=== PATIENT | female | born 1960 | race Caucasian/White ===

== ENCOUNTER 2017-07-25 21:06 | Inpatient (IN) | payer OTHER ==
[2017-07-25] MEDS ORDERED: KETOROLAC 30 MG/ML 1 ML VIAL IVP STA (22:05)
[2017-07-25] MEDS ORDERED: ONDANSETRON 4 MG/2 ML VIAL IVP STA (22:05)
[2017-07-25] MEDS ORDERED: PANTOPRAZOLE 40 MG/10 ML VIAL IVP STA (22:05)
[2017-07-25 22:30] LABS: Basophils # (A) 0.1 k/uL (0-0.2); Basophils % (A) 1 %; Eosinophils # (A) 0.3 k/uL (0-0.7); Eosinophils % (A) 4 %; HCT 40.6 % (34.0-46.0); HGB 13.7 gm/dL (11.4-16.0); Lymphocytes # (A) 2.2 k/uL (1.0-4.8); Lymphocytes % (A) 33 %; MCH 29.6 pg (25.0-35.0); MCHC 33.7 g/dL (31.0-37.0); Mean Platelet Volume 7.4; Monocytes # (A) 0.4 k/uL (0-1.0); Monocytes % (A) 6 %; Neutrophils # (A) 3.7 k/uL (1.3-7.7); Neutrophils % (A) 55 %; Platelet Count 217 k/uL (150-450); RBC 4.62 m/uL (3.80-5.40); RDW 12.7 % (11.5-15.5); WBC 6.8 k/uL (3.8-10.6)
[2017-07-25 22:41] LABS: ALT 55 U/L (9-52); AST 40 U/L (14-36); Albumin 4.3 g/dL (3.5-5.0); Alkaline Phosphatase 120 U/L (38-126); Amylase 48 U/L (30-110); Anion Gap 14 mmol/L; Blood Urea Nitrogen 16 mg/dL (7-17); Calcium 9.8 mg/dL (8.4-10.2); Carbon Dioxide 22 mmol/L (22-30); Chloride 105 mmol/L (98-107); Glucose 118 mg/dL (74-99); Lipase 81 U/L (23-300); Potassium 4.2 mmol/L (3.5-5.1); Sodium 141 mmol/L (137-145); Total Bilirubin 0.3 mg/dL (0.2-1.3); Total Protein 7.4 g/dL (6.3-8.2)
[2017-07-25] MEDS: SODIUM CHLORIDE 0.9% 1,000 ML IV STA (22:47)
[2017-07-25 22:51] LABS: Creatine Kinase 137 U/L (30-135)
[2017-07-25 23:03] LABS: Creatine Kinase MB 1.7 ng/mL (0.0-2.4); Troponin I <0.012 ng/mL (0.000-0.034)
--- NOTE | 2017-07-25 23:52 | US ---
EXAMINATION TYPE: US gallbladder DATE OF EXAM: 07/25/2017 COMPARISON: NONE CLINICAL HISTORY: Pain. Had ultrasound at another facility that showed wall thickening. EXAM MEASUREMENTS: Liver Length: 14.0 cm Gallbladder Wall: 0.8 cm CBD: 0.4 cm Right Kidney: 9.9 x 3.8 x 4.2 cm Pancreas: Obscured by bowel gas, visualized portions wnl Liver: wnl Gallbladder: Wall is thickened with some possible pericholecystic fluid Evidence for sonographic Fernandez's sign: Yes CBD: wnl as visualized, distal portion obscured by bowel gas Right Kidney: No hydronephrosis or masses seen IMPRESSION: There is gallbladder wall thickening consistent with cholecystitis. No dilated ducts. No gallstones identified.
[2017-07-26 00:18] LABS: WBC,Urine <1 /hpf (0-5)
[2017-07-26] MEDS ORDERED: AMPICILLIN-SULBACTAM 3 GM in SODIUM CHLORIDE 0.9% 100 ML IVPB STA (00:18)
[2017-07-26 00:19] LABS: Appearance,Urine Clear (Clear); Bilirubin,Urine Negative (Negative); Blood,Urine Negative (Negative); Color,Urine Yellow; Glucose,Urine (UA) Negative (Negative); Ketones,Urine Negative (Negative); Leukocyte Esterase,Urine Negative (Negative); Nitrite,Urine Negative (Negative); PH, Urine 6.5 (5.0-8.0); Protein,Urine Negative (Negative); Specific Gravity,Urine 1.006 (1.001-1.035); Urobilinogen,Urine <2.0 mg/dL (<2.0)
--- NOTE | 2017-07-26 00:20 | ED ---
General Adult HPI - General Chief complaint: Abdominal Pain Stated complaint: Abdominal Pain Time Seen by Provider: 07/25/17 22:05 Source: patient Mode of arrival: ambulatory Limitations: no limitations - Related Data Allergies Allergy/AdvReac Type Severity Reaction Status Date / Time No Known Allergies Allergy Verified 07/25/17 21:28 Review of Systems ROS Statement: Those systems with pertinent positive or pertinent negative responses have been documented in the HPI. ROS Other: All systems not noted in ROS Statement are negative. Past Medical History Past Medical History: No Reported History Additional Past Medical History / Comment(s): RA History of Any Multi-Drug Resistant Organisms: None Reported Past Surgical History: Breast Surgery Past Psychological History: No Psychological Hx Reported Smoking Status: Never smoker Past Alcohol Use History: Occasional Past Drug Use History: None Reported General Exam Limitations: no limitations Course Vital Signs 07/25/17 07/26/17 21:24 00:02 Temperature 98.2 F 98.2 F Pulse Rate 77 80 Respiratory 18 19 Rate Blood Pressure 172/82 133/76 O2 Sat by Pulse 98 97 Oximetry Medical Decision Making - Lab Data Result diagrams: 07/25/17 22:18 07/25/17 22:18 Lab Results 07/25/17 07/25/17 07/25/17 Range/Units 22:18 22:18 22:18 WBC 6.8 (3.8-10.6) k/uL RBC 4.62 (3.80-5.40) m/uL Hgb 13.7 (11.4-16.0) gm/dL Hct 40.6 (34.0-46.0) % MCV 88.0 (80.0-100.0) fL MCH 29.6 (25.0-35.0) pg MCHC 33.7 (31.0-37.0) g/dL RDW 12.7 (11.5-15.5) % Plt Count 217 (150-450) k/uL Neutrophils % 55 % Lymphocytes % 33 % Monocytes % 6 % Eosinophils % 4 % Basophils % 1 % Neutrophils # 3.7 (1.3-7.7) k/uL Lymphocytes # 2.2 (1.0-4.8) k/uL Monocytes # 0.4 (0-1.0) k/uL Eosinophils # 0.3 (0-0.7) k/uL Basophils # 0.1 (0-0.2) k/uL Sodium 141 (137-145) mmol/L Potassium 4.2 (3.5-5.1) mmol/L Chloride 105 (98-107) mmol/L Carbon Dioxide 22 (22-30) mmol/L Anion Gap 14 mmol/L BUN 16 (7-17) mg/dL Creatinine 0.70 (0.52-1.04) mg/dL Est GFR (CKD-EPI)AfAm >90 (>60 ml/min/1.73 sqM) Est GFR (CKD-EPI)NonAf >90 (>60 ml/min/1.73 sqM) Glucose 118 H (74-99) mg/dL Plasma Lactic Acid James (0.7-2.0) mmol/L Calcium 9.8 (8.4-10.2) mg/dL Total Bilirubin 0.3 (0.2-1.3) mg/dL AST 40 H (14-36) U/L ALT 55 H (9-52) U/L Alkaline Phosphatase 120 (38-126) U/L Total Creatine Kinase 137 H (30-135) U/L CK-MB (CK-2) 1.7 (0.0-2.4) ng/mL CK-MB (CK-2) Rel Index 1.2 Troponin I <0.012 (0.000-0.034) ng/mL Total Protein 7.4 (6.3-8.2) g/dL Albumin 4.3 (3.5-5.0) g/dL Amylase 48 (30-110) U/L Lipase 81 (23-300) U/L Urine WBC (0-5) /hpf 07/25/17 07/25/17 Range/Units 22:18 23:56 WBC (3.8-10.6) k/uL RBC (3.80-5.40) m/uL Hgb (11.4-16.0) gm/dL Hct (34.0-46.0) % MCV (80.0-100.0) fL MCH (25.0-35.0) pg MCHC (31.0-37.0) g/dL RDW (11.5-15.5) % Plt Count (150-450) k/uL Neutrophils % % Lymphocytes % % Monocytes % % Eosinophils % % Basophils % % Neutrophils # (1.3-7.7) k/uL Lymphocytes # (1.0-4.8) k/uL Monocytes # (0-1.0) k/uL Eosinophils # (0-0.7) k/uL Basophils # (0-0.2) k/uL Sodium (137-145) mmol/L Potassium (3.5-5.1) mmol/L Chloride (98-107) mmol/L Carbon Dioxide (22-30) mmol/L Anion Gap mmol/L BUN (7-17) mg/dL Creatinine (0.52-1.04) mg/dL Est GFR (CKD-EPI)AfAm (>60 ml/min/1.73 sqM) Est GFR (CKD-EPI)NonAf (>60 ml/min/1.73 sqM) Glucose (74-99) mg/dL Plasma Lactic Acid James 1.4 (0.7-2.0) mmol/L Calcium (8.4-10.2) mg/dL Total Bilirubin (0.2-1.3) mg/dL AST (14-36) U/L ALT (9-52) U/L Alkaline Phosphatase (38-126) U/L Total Creatine Kinase (30-135) U/L CK-MB (CK-2) (0.0-2.4) ng/mL CK-MB (CK-2) Rel Index Troponin I (0.000-0.034) ng/mL Total Protein (6.3-8.2) g/dL Albumin (3.5-5.0) g/dL Amylase (30-110) U/L Lipase (23-300) U/L Urine WBC <1 (0-5) /hpf Disposition Clinical Impression: Abdominal pain, Acute cholecystitis Disposition: ADMITTED IP TO THIS HOSP Condition: Good Is patient prescribed a controlled substance at d/c from ED?: No Referrals: Deondre Delacruz MD [Primary Care Provider] - 1-2 days
[2017-07-26 01:07] VITALS: BMI 26.5
[2017-07-26] MEDS: SODIUM CHLORIDE 0.9% 1,000 ML IV STA (01:10)
[2017-07-26] MEDS: AMPICILLIN-SULBACTAM 3 GM in SODIUM CHLORIDE 0.9% 100 ML IVPB SCH ×4 (05:34→23:58)
--- NOTE | 2017-07-26 10:08 | P.GSHP ---
<Rosy Sharpe Xochitl - Last Filed: 07/26/17 10:08> History of Present Illness H&P Date: 07/26/17 Chief Complaint: Right upper quadrant abdominal pain 57-year-old female who presented on the day of admission to the emergency room to be evaluated for persistent right upper quadrant abdominal pain symptomatic nausea sensation patient stated that she has been having this pain for the past several weeks. Did go to her primary care provider to be evaluated who ordered an outpatient ultrasound of the gallbladder. Patient stated that she was told by her PCP the gallbladder was thickened and that she needed to see a surgeon. Patient stated that she was going to call to this week to make an appointment to be seen by Dr. Herrera. stated that she could not wait the pain became more symptomatic presented to the emergency room. Did have an ultrasound of the gallbladder done in the emergency room the report was reviewed it showed gallbladder wall thickening consistent with cholecystitis no dilated ducts. No gallstones identified patient denies prior episodes Patient continues to report having right upper quadrant abdominal pain aggravated by eating high fat food Labs reviewed AST 40 ALT 55 alkaline phosphatase 120 total bili 0.3 No significant abdominal surgeries. Past surgical history breast reduction 15 years ago. Past medical history rheumatoid arthritis on enbrel. - Review of Systems Comment: Essentially unremarkable except as mentioned in the present illness Past Medical History Past Medical History: Rheumatoid Arthritis (RA) Additional Past Medical History / Comment(s): RA History of Any Multi-Drug Resistant Organisms: None Reported Past Surgical History: Breast Surgery Additional Past Surgical History / Comment(s): Reduction breast surg. Past Anesthesia/Blood Transfusion Reactions: No Reported Reaction Past Psychological History: No Psychological Hx Reported Smoking Status: Never smoker Past Alcohol Use History: Occasional Past Drug Use History: None Reported - Past Family History Father Family Medical History: Prostate Disorder Additional Family Medical History / Comment(s): CA. Mother Additional Family Medical History / Comment(s): Car accident. Medications and Allergies Home Medications Medication Instructions Recorded Confirmed Type Adalimumab [Humira Pen] 40 mg SQ Q14D 07/26/17 07/26/17 History Calcium Carbonate [Calcium] 600 mg PO DAILY 07/26/17 07/26/17 History Cholecalciferol [Vitamin D3] 1,000 unit PO DAILY 07/26/17 07/26/17 History Cyanocobalamin (Vitamin B-12) 1,000 mcg PO DAILY 07/26/17 07/26/17 History [Vitamin B-12] Etanercept [Enbrel Sureclick] 50 mg SQ DIRECTED 07/26/17 07/26/17 History Fish Oil(Unknown Dose) 1 cap PO DAILY 07/26/17 07/26/17 History Flaxseed Oil [[place]-3 Flaxseed Oil] 1,000 mg PO DAILY 07/26/17 07/26/17 History Glucosamine/Chondr Gomez A Sod [Osteo 2 tab PO DAILY 07/26/17 07/26/17 History Bi-Flex Caplet] Leflunomide [Arava] 20 mg PO DAILY@1700 07/26/17 07/26/17 History Allergies Allergy/AdvReac Type Severity Reaction Status Date / Time No Known Allergies Allergy Verified 07/26/17 08:52 Surgical - Exam Vital Signs Temp Pulse Resp BP Pulse Ox 98.2 F 77 18 172/82 98 07/25/17 21:24 07/25/17 21:24 07/25/17 21:24 07/25/17 21:24 07/25/17 21:24 GENERAL APPEARANCE: 57-year-old female patient is alert, oriented, in no acute distress. VITAL SIGNS: Reviewed HEENT: Head is normocephalic and atraumatic. Pupils are equal and reactive. The nares are patent. Oropharynx is clear without lesions. NECK: Supple without lymphadenopathy. Traches midline. HEART: S1, S2. Regular rate and rhythm. Denying chest pain no murmur LUNGS: No crackles or wheezes are heard. Adequate air movement bilaterally on room air ABDOMEN: Soft, mild tenderness right upper quadrant nondistended with good bowel sounds. No peritoneal signs. No palpable organomegaly or masses. EXTREMITIES: Normal skin color and turgor. No cyanosis, rash, ulceration, clubbing or edema. Radial pedal pulses are 2/4 bilaterally. NEUROLOGICAL: No focal deficits. Strength and sensation are grossly intact. Results - Labs 07/25/17 22:18 07/25/17 22:18 Abnormal Lab Results - Last 24 Hours (Table) 07/25/17 07/25/17 Range/Units 22:18 22:18 Glucose 118 H (74-99) mg/dL AST 40 H (14-36) U/L ALT 55 H (9-52) U/L Total Creatine Kinase 137 H (30-135) U/L Diabetes panel 07/25/17 Range/Units 22:18 Sodium 141 (137-145) mmol/L Potassium 4.2 (3.5-5.1) mmol/L Chloride 105 (98-107) mmol/L Carbon Dioxide 22 (22-30) mmol/L BUN 16 (7-17) mg/dL Creatinine 0.70 (0.52-1.04) mg/dL Glucose 118 H (74-99) mg/dL Calcium 9.8 (8.4-10.2) mg/dL AST 40 H (14-36) U/L ALT 55 H (9-52) U/L Alkaline Phosphatase 120 (38-126) U/L Total Protein 7.4 (6.3-8.2) g/dL Albumin 4.3 (3.5-5.0) g/dL Calcium panel 07/25/17 Range/Units 22:18 Calcium 9.8 (8.4-10.2) mg/dL Albumin 4.3 (3.5-5.0) g/dL Pituitary panel 07/25/17 Range/Units 22:18 Sodium 141 (137-145) mmol/L Potassium 4.2 (3.5-5.1) mmol/L Chloride 105 (98-107) mmol/L Carbon Dioxide 22 (22-30) mmol/L BUN 16 (7-17) mg/dL Creatinine 0.70 (0.52-1.04) mg/dL Glucose 118 H (74-99) mg/dL Calcium 9.8 (8.4-10.2) mg/dL Adrenal panel 07/25/17 Range/Units 22:18 Sodium 141 (137-145) mmol/L Potassium 4.2 (3.5-5.1) mmol/L Chloride 105 (98-107) mmol/L Carbon Dioxide 22 (22-30) mmol/L BUN 16 (7-17) mg/dL Creatinine 0.70 (0.52-1.04) mg/dL Glucose 118 H (74-99) mg/dL Calcium 9.8 (8.4-10.2) mg/dL Total Bilirubin 0.3 (0.2-1.3) mg/dL AST 40 H (14-36) U/L ALT 55 H (9-52) U/L Alkaline Phosphatase 120 (38-126) U/L Total Protein 7.4 (6.3-8.2) g/dL Albumin 4.3 (3.5-5.0) g/dL Assessment and Plan Assessment: Impression Present on admission right upper quadrant abdominal pain suspect due to acute cholecystitis Ultrasound of the gallbladder showed gallbladder wall thickening consistent with cholecystitis no dilated ducts no gallstones identified History of rheumatoid arthritis on enbrel Plan Obtain the ultrasound gallbladder report from outpatient clinic Scheduled for a HIDA scan follow up on results DVT and GI prophylaxis IV fluid for hydration Pain control keep nothing by mouth until HIDA scan results reviewed Further surgical recommendations pending The above impression and plan of care have been discussed and directed by signing physician. Rosy Sharpe nurse practitioner acting as scribe for signing physician. <Qamar Herrera - Last Filed: 07/26/17 21:31> Surgical - Exam Vital Signs Temp Pulse Resp BP Pulse Ox 98.2 F 77 18 172/82 98 07/25/17 21:24 07/25/17 21:24 07/25/17 21:24 07/25/17 21:24 07/25/17 21:24 Results - Labs 07/26/17 13:21 07/26/17 13:21 Abnormal Lab Results - Last 24 Hours (Table) 07/25/17 07/25/17 07/26/17 Range/Units 22:18 22:18 13:21 Chloride 109 H (98-107) mmol/L Glucose 118 H (74-99) mg/dL AST 40 H (14-36) U/L ALT 55 H (9-52) U/L Total Creatine Kinase 137 H (30-135) U/L Total Protein 6.1 L (6.3-8.2) g/dL Microbiology - Last 24 Hours (Table) 07/25/17 23:56 Urine Culture - Preliminary Urine,Clean Catch Diabetes panel 07/25/17 07/26/17 Range/Units 22:18 13:21 Sodium 141 142 (137-145) mmol/L Potassium 4.2 4.0 (3.5-5.1) mmol/L Chloride 105 109 H (98-107) mmol/L Carbon Dioxide 22 26 (22-30) mmol/L BUN 16 11 (7-17) mg/dL Creatinine 0.70 0.80 (0.52-1.04) mg/dL Glucose 118 H 90 (74-99) mg/dL Calcium 9.8 9.1 (8.4-10.2) mg/dL AST 40 H 30 (14-36) U/L ALT 55 H 50 (9-52) U/L Alkaline Phosphatase 120 90 (38-126) U/L Total Protein 7.4 6.1 L (6.3-8.2) g/dL Albumin 4.3 3.6 (3.5-5.0) g/dL Calcium panel 07/25/17 07/26/17 Range/Units 22:18 13:21 Calcium 9.8 9.1 (8.4-10.2) mg/dL Albumin 4.3 3.6 (3.5-5.0) g/dL Pituitary panel 07/25/17 07/26/17 Range/Units 22:18 13:21 Sodium 141 142 (137-145) mmol/L Potassium 4.2 4.0 (3.5-5.1) mmol/L Chloride 105 109 H (98-107) mmol/L Carbon Dioxide 22 26 (22-30) mmol/L BUN 16 11 (7-17) mg/dL Creatinine 0.70 0.80 (0.52-1.04) mg/dL Glucose 118 H 90 (74-99) mg/dL Calcium 9.8 9.1 (8.4-10.2) mg/dL Adrenal panel 07/25/17 07/26/17 Range/Units 22:18 13:21 Sodium 141 142 (137-145) mmol/L Potassium 4.2 4.0 (3.5-5.1) mmol/L Chloride 105 109 H (98-107) mmol/L Carbon Dioxide 22 26 (22-30) mmol/L BUN 16 11 (7-17) mg/dL Creatinine 0.70 0.80 (0.52-1.04) mg/dL Glucose 118 H 90 (74-99) mg/dL Calcium 9.8 9.1 (8.4-10.2) mg/dL Total Bilirubin 0.3 0.7 (0.2-1.3) mg/dL AST 40 H 30 (14-36) U/L ALT 55 H 50 (9-52) U/L Alkaline Phosphatase 120 90 (38-126) U/L Total Protein 7.4 6.1 L (6.3-8.2) g/dL Albumin 4.3 3.6 (3.5-5.0) g/dL Assessment and Plan Assessment: As above. HIDA scan today shows occlusion of the cystic duct with nonvisualization of the gallbladder. Apparently her outpatient ultrasound showed possible polyps which I suspect likely represented gallstones. Patient' s pain has improved since admission. Options discussed with the patient and her family in detail. At this time recommend cholecystectomy laparoscopically, possible open. Risks of bleeding, infection, bile leak, bile duct injury, retained common bile duct stone, trocar injury, conversion to an open procedure , chronic diarrhea, anesthesia related complications were reviewed. The patient understands wished to proceed
[2017-07-26] MEDS: PANTOPRAZOLE 40 MG/10 ML VIAL IVP SCH (12:51)
[2017-07-26] MEDS: SODIUM CHLORIDE 0.9% 1,000 ML IV SCH ×3 (12:51→23:57)
[2017-07-26 13:37] LABS: HCT 37.8 % (34.0-46.0); HGB 12.3 gm/dL (11.4-16.0); MCHC 32.4 g/dL (31.0-37.0); MCV 89.3 fL (80.0-100.0); Mean Platelet Volume 7.2; Platelet Count 204 k/uL (150-450); RBC 4.23 m/uL (3.80-5.40); RDW 12.9 % (11.5-15.5); WBC 4.7 k/uL (3.8-10.6)
[2017-07-26 13:51] LABS: ALT 50 U/L (9-52); AST 30 U/L (14-36); Albumin 3.6 g/dL (3.5-5.0); Alkaline Phosphatase 90 U/L (38-126); Anion Gap 7 mmol/L; Blood Urea Nitrogen 11 mg/dL (7-17); Calcium 9.1 mg/dL (8.4-10.2); Carbon Dioxide 26 mmol/L (22-30); Chloride 109 mmol/L (98-107); Glucose 90 mg/dL (74-99); Sodium 142 mmol/L (137-145); Total Bilirubin 0.7 mg/dL (0.2-1.3); Total Protein 6.1 g/dL (6.3-8.2)
[2017-07-26 13:57] LABS: Eosinophils # (M) 0.24 k/uL (0-0.7); Lymphocytes # (M) 2.68 k/uL (1.0-4.8); Monocytes # (M) 0.33 k/uL (0-1.0); Neutrophils # (M) 1.46 k/uL (1.3-7.7); Neutrophils % (M) 31 %; Nucleated Red Blood Cells 0 /100 WBC (0-0); Total Cells Counted 100
--- NOTE | 2017-07-26 14:37 | NM ---
EXAMINATION TYPE: NM hepatobiliary wo EF DATE OF EXAM: 07/26/2017 COMPARISON: Ultrasound gallbladder 07/25/2017 INDICATION: Right side abdomen pain TECHNIQUE: After the intravenous administration of 5.18 mCi Tc 99m Mebrofenin hepatobiliary scintigra phy is performed. Images were obtained immediately post injection. FINDINGS: There is prompt uptake and excretion of radiotracer by the liver. Extrahepatic ducts are identified at 9 minutes. The gallbladder is not visualized. Small bowel activity is noted within 17 minutes. IMPRESSION: 1. No obstruction of the common bile duct. 2. Nonvisualization of the cystic duct or gallbladder. Correlate for acute cholecystitis.
[2017-07-26] MEDS: ENOXAPARIN 40 MG/0.4 ML SYRINGE SQ SCH (18:06)
--- NOTE | 2017-07-26 18:17 | CONS ---
CONSULTATION DATE OF CONSULTATION: 07/26/2017 REASON FOR CONSULTATION: Medical management requested by Dr. Herrera. CONSULTATION: This is a pleasant 57-year-old patient of Dr. Delacruz out of [facility]. She follows with telephone service representative Dr. Whiteside for advanced rheumatoid arthritis. The patient was on Enbrel and is now being switched over to Humira. Patient has rheumatoid arthritis in several joints. Patient about 2 weeks ago developed sharp abdominal pain. She had an ultrasound that showed evidence of gallbladder disease. She was referred to see Dr. Herrera but had not gotten around to do that. Yesterday morning the patient woke up feeling unwell, more in her stomach. Most of this was nausea, vomiting, abdominal pain. Ultrasound did confirm acute cholecystitis. Patient was admitted for the same. The patient was put on IV Unasyn. Maybe has a low-grade fever. With the pain medicine, pain is somewhat controlled. REVIEW OF SYSTEMS: CONSTITUTIONAL: Tired. HEENT: None. RESPIRATORY: None. CARDIOVASCULAR: None. GASTROINTESTINAL: As above. GENITOURINARY: None. MUSCULOSKELETAL: Arthritic pain in many joints. DERMATOLOGICAL: None. HEMATOLOGICAL: None. LYMPHATICS: None. PSYCHIATRY: None. NEUROLOGICAL: None. PAST MEDICAL HISTORY: Rheumatoid arthritis. PAST SURGICAL HISTORY: Reduction breast surgery. SOCIAL HISTORY: No smoking. Alcohol occasionally. 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 Lives with significant other called Farooq. FAMILY HISTORY: Prostate cancer. HOME MEDICATIONS: 1. Arava 20 mg p.o. daily at 5 p.m. 2. Osteo Bi-Flex 2 caplets p.o. daily. 3. Flaxseed oil 1000 mg p.o. daily. 4. Fish oil 1 capsule p.o. daily. 5. Enbrel 50 mg subcutaneously p.r.n. 6. Vitamin B12 1000 mcg a day. 7. Vitamin D3 1000 units p.o. daily. 8. Calcium 600 mg p.o. daily. 9. Humira 40 mg subcutaneously every 14 days. ALLERGIES: NONE. PHYSICAL EXAMINATION: VITAL SIGNS ON PRESENTATION: Temperature 98.2, pulse 77, respiration 16, blood pressure 132/76, pulse ox 97% on room air. GENERAL APPEARANCE: Average build. Lying in bed, somewhat tired-appearing. EYES: Pupils equal. Conjunctivae normal. HEENT: External appearance of nose and ears normal. Oral cavity normal. NECK: JVD not raised. Mass not palpable. RESPIRATORY: Effort normal. Lungs are clear. CARDIOVASCULAR: First and second sounds normal. No edema. ABDOMEN: Right upper quadrant tenderness with positive Fernandez sign. Liver and spleen not palpable. LYMPHATIC: No lymph node palpable in neck or axillae. PSYCHIATRY: Alert and oriented x3. Mood and affect. NEUROLOGICAL: Pupils equal. Cranial nerves grossly intact. Power and sensation grossly intact. INVESTIGATIONS: White count 6.8, hemoglobin 13.7, potassium 4.2. BUN and creatinine are normal. ASSESSMENT: 1. Acute on chronic cholecystitis, symptomatic. 2. Bilateral rheumatoid arthritis. Patient is due to get Humira soon. 3. Immunosuppressed state from immunosuppressants, including patient being on Arava and Enbrel. PLAN: At this point we will stop patient's immunosuppressants, including Arava and Enbrel. Patient is on IV Unasyn. N.p.o. getting IV fluids. Patient will need surgical correction. Care was discussed with the patient. Questions were answered. MMODL / IJN: [id number] /
[2017-07-26] MEDS ORDERED: SODIUM CHLORIDE 0.9% 1,000 ML IV ONE (21:08)
[2017-07-26] MEDS ORDERED: MIDAZOLAM 2 MG/2 ML VIAL ONE (21:48)
[2017-07-26] MEDS ORDERED: ROCURONIUM BROMIDE 10 MG/ML 10 ML VIAL IV ONE (21:48)
[2017-07-26] MEDS ORDERED: PROPOFOL 10 MG/ML 20 ML VIAL IV ONE (21:48)
[2017-07-26] MEDS ORDERED: DEXAMETHASONE SOD PHOS (MDV) 100 MG/10 ML VIAL ONE (21:48)
[2017-07-26] MEDS ORDERED: fentaNYL (PF) 50 MCG/ML 2 ML AMP ONE (21:48)
[2017-07-26] MEDS ORDERED: SUCCINYLCHOLINE CHLORIDE 100 MG/5 ML SYR IV ONE (21:48)
[2017-07-26] MEDS ORDERED: LIDOCAINE 1% INJ 10MG/ML (20 ML MDV) ONE (21:48)
[2017-07-26] MEDS ORDERED: GLYCOPYRROLATE 0.2 MG/ML 2 ML VIAL ONE (21:48)
[2017-07-26] MEDS ORDERED: NEOSTIGMINE 1 MG/ML 10 ML VIAL ONE (21:48)
[2017-07-26] MEDS ORDERED: HYDROmorphone (PF) 1 MG/ML ONE (21:48)
[2017-07-26] MEDS ORDERED: ONDANSETRON 4 MG/2 ML VIAL ONE (21:48)
[2017-07-26] MEDS ORDERED: HEPARIN SODIUM,PORCINE 5,000 UNIT/ML 1 ML VIAL ONE (21:48)
[2017-07-26] MEDS ORDERED: ceFAZolin IN SWFI 2 GM/20 ML SYRINGE IVP ONE (22:01)
[2017-07-26] MEDS ORDERED: BUPIVACAINE (PF) 0.5% 30 ML VIAL SQ ONE (22:16)
[2017-07-26] MEDS ORDERED: LACTATED RINGERS 1,000 ML IV ONE (22:17)
--- NOTE | 2017-07-26 22:58 | P.OP ---
Date of Procedure: 07/26/17 Procedure(s) Performed: PREOPERATIVE DIAGNOSIS: Acute cholecystitis POSTOPERATIVE DIAGNOSIS: Same PROCEDURE: Laparoscopic cholecystectomy SURGEON: Javier EBL: Minimal see anesthesia record ANESTHESIA: Gen. COMPLICATIONS: None OPERATIVE PROCEDURE: The patient was brought and placed on the operating room table in the supine position. The patient was placed under general anesthesia at that time. The abdomen was prepped and draped in the usual sterile fashion. A small vertical infraumbilical incision was made. The fascia was grasped with the Vicente forceps. The fascia was retracted anteriorly. The Veress needle was advanced into the peritoneal cavity. The saline drop test was normal. Insufflation took place up to 15 mmHg. A 5 mm optical trocar was advanced into the peritoneal cavity. 2 additional 5 mm trochars were placed in the right upper quadrant under direct visualization. A 12 mm trocar was advanced into the epigastric incision site. The gallbladder was acutely inflamed with a significant edema of the gallbladder wall. The gallbladder was retracted superiorly and laterally. The peritoneum overlying the infundibulum was bluntly dissected. The patient's cystic duct was visualized. The junction between the cystic duct common and hepatic duct was identified. The cystic duct was then divided after placement of 3 12 mm clips on the patient's side and one on the specimen side. The cystic artery was identified and clipped as well. A small vessel was seen along the gallbladder fossa and clipped as well. The gallbladder was then removed from the liver bed using electrocautery. The gallbladder was then removed from the epigastric trocar site with an Endo Catch bag. The gallbladder fossa was irrigated with saline. There was no evidence of any bleeding or biliary drainage seen. The trochars were then removed. The fascia at the 12 millimeter site was closed using a figure-of- eight 0 Vicryl stitch. The skin at all 4 sites was closed using a 4-0 Monocryl stitch. The gallbladder was then later opened and a 1.5cm gallstone was identified within the lumen of the gallbladder. At the end of this procedure the sponge and needle counts were correct. DISPOSITION: Stable to the recovery room
[2017-07-26 23:08] VITALS: RESP 16
[2017-07-26] MEDS: HYDROmorphone 1 MG/ML 1 ML SYRINGE IVP ONE ×2 (23:27→23:36)
[2017-07-27] MEDS: MORPHINE SULFATE 2 MG/ML SYRINGE IVP PRN ×2 (02:48→07:23)
[2017-07-27] MEDS: AMPICILLIN-SULBACTAM 3 GM in SODIUM CHLORIDE 0.9% 100 ML IVPB SCH ×3 (05:26→18:11)
[2017-07-27] MEDS: PANTOPRAZOLE 40 MG/10 ML VIAL IVP SCH (07:23)
[2017-07-27 08:00] LABS: Basophils % (A) 0 %; Eosinophils % (A) 0 %; HCT 38.6 % (34.0-46.0); HGB 12.9 gm/dL (11.4-16.0); Lymphocytes # (A) 0.6 k/uL (1.0-4.8); Lymphocytes % (A) 17 %; MCHC 33.5 g/dL (31.0-37.0); MCV 89.6 fL (80.0-100.0); Mean Platelet Volume 7.6; Monocytes # (A) 0.1 k/uL (0-1.0); Monocytes % (A) 3 %; Neutrophils # (A) 3.1 k/uL (1.3-7.7); Neutrophils % (A) 80 %; Platelet Count 193 k/uL (150-450); RBC 4.31 m/uL (3.80-5.40); RDW 12.6 % (11.5-15.5); WBC 3.8 k/uL (3.8-10.6)
[2017-07-27 08:13] LABS: ALT 61 U/L (9-52); AST 52 U/L (14-36); Albumin 3.8 g/dL (3.5-5.0); Alkaline Phosphatase 92 U/L (38-126); Anion Gap 12 mmol/L; Blood Urea Nitrogen 11 mg/dL (7-17); Calcium 9.1 mg/dL (8.4-10.2); Carbon Dioxide 22 mmol/L (22-30); Chloride 106 mmol/L (98-107); Glucose 135 mg/dL (74-99); Potassium 4.3 mmol/L (3.5-5.1); Sodium 140 mmol/L (137-145); Total Bilirubin 0.6 mg/dL (0.2-1.3); Total Protein 6.4 g/dL (6.3-8.2)
[2017-07-27] MEDS ORDERED: ONDANSETRON 4 MG/2 ML VIAL IVP PRN (09:55)
[2017-07-27] MEDS: SODIUM CHLORIDE 0.9% 1,000 ML IV SCH (10:05)
[2017-07-27] MEDS: HYDROcodone/APAP 5-325MG 1 EACH TAB PO PRN ×2 (12:12→16:33)
--- NOTE | 2017-07-27 12:29 | P.PN ---
<Rosy Sharpe M - Last Filed: 07/27/17 12:22> Subjective Progress Note Date: 07/27/17 57-year-old female resting in bed reports having episode of feeling nauseated did vomit a small amount of clear secretions. States not passing gas no stool urinating no difficulty pain medication effective for pain control. White count 3.8 electrolytes within normal limits afebrile surgical dressing sites dry nondistended Postop July 26 laparoscopic cholecystectomy for acute cholecystitis Objective - Vital Signs Vital signs: Vital Signs Temp 97 F L 07/27/17 05:00 Pulse 69 07/27/17 05:00 Resp 16 07/27/17 05:00 BP 124/71 07/27/17 05:00 Pulse Ox 95 07/27/17 05:00 Intake & Output 07/26/17 07/27/17 07/27/17 18:59 06:59 18:59 Intake Total 1225 1700 Balance 1225 1700 Weight 65.771 kg 65.771 kg Intake: IV 650 Intake, IV Titration 1225 900 Amount Ampicillin-Sulbactam 3 gm 100 In Sodium Chloride 0.9% 100 ml @ 100 mls/hr IVPB ONCE STA Rx#:[id number] Lactated Ringers 1,000 ml 300 As IV .STK-MED ONE Rx#: [id number] Sodium Chloride 0.9% 1, 1000 000 ml @ 100 mls/hr IV . Q10H STA Rx#:[id number] Sodium Chloride 0.9% 1, 125 600 000 ml @ 125 mls/hr IV . Q8H GIOVANNA Rx#:[id number] Oral 150 Other: Voiding Method Toilet Toilet Toilet Bedside Commode Bedside Commode # Voids 5 2 - Exam Physical exam 57-year-old resting in bed reports having an episode of feeling nauseated earlier this morning anti-emetics given with less nausea Lungs adequate air movement bilaterally on room air no cough Heart S1-S2 audible regular Abdomen soft not distended surgical dressing sites dry surgical tenderness appropriate few Hypoactive bowel tones bowel tones Extremities no edema noted - Labs CBC & Chem 7: 07/27/17 07:35 07/27/17 07:35 Labs: Abnormal Lab Results - Last 24 Hours (Table) 07/26/17 07/27/17 07/27/17 Range/Units 13:21 07:35 07:35 Lymphocytes # 0.6 L (1.0-4.8) k/uL Chloride 109 H (98-107) mmol/L Glucose 135 H (74-99) mg/dL AST 52 H (14-36) U/L ALT 61 H (9-52) U/L Total Protein 6.1 L (6.3-8.2) g/dL Microbiology - Last 24 Hours (Table) 07/25/17 23:56 Urine Culture - Preliminary Urine,Clean Catch Assessment and Plan Assessment: Impression Present on admission right upper quadrant abdominal pain suspect due to acute cholecystitis Ultrasound of the gallbladder showed gallbladder wall thickening consistent with cholecystitis no dilated ducts no gallstones identified History of rheumatoid arthritis on enbrel Plan Continue postop surgical care DVT and GI prophylaxis IV fluid for hydration Pain control Further surgical recommendations pending The above impression and plan of care have been discussed and directed by signing physician. Rosy Sharpe nurse practitioner acting as scribe for signing physician. <Qamar Herrera - Last Filed: 07/27/17 17:26> Objective - Vital Signs Vital signs: Vital Signs Temp 97.9 F 07/27/17 13:59 Pulse 76 07/27/17 13:59 Resp 16 07/27/17 13:59 BP 148/82 07/27/17 13:59 Pulse Ox 96 07/27/17 13:59 Intake & Output 07/26/17 07/27/17 07/27/17 18:59 06:59 18:59 Intake Total 1225 1700 1500 Balance 1225 1700 1500 Weight 65.771 kg 65.771 kg Intake: IV 650 Intake, IV Titration 1225 900 Amount Ampicillin-Sulbactam 3 gm 100 In Sodium Chloride 0.9% 100 ml @ 100 mls/hr IVPB ONCE STA Rx#:[id number] Lactated Ringers 1,000 ml 300 As IV .STK-MED ONE Rx#: [id number] Sodium Chloride 0.9% 1, 1000 000 ml @ 100 mls/hr IV . Q10H STA Rx#:[id number] Sodium Chloride 0.9% 1, 125 600 000 ml @ 125 mls/hr IV . Q8H GIOVANNA Rx#:[id number] Oral 150 1500 Other: Voiding Method Toilet Toilet Toilet Bedside Commode Bedside Commode # Voids 5 2 4 - Labs CBC & Chem 7: 07/27/17 07:35 07/27/17 07:35 Labs: Abnormal Lab Results - Last 24 Hours (Table) 07/27/17 07/27/17 Range/Units 07:35 07:35 Lymphocytes # 0.6 L (1.0-4.8) k/uL Glucose 135 H (74-99) mg/dL AST 52 H (14-36) U/L ALT 61 H (9-52) U/L Microbiology - Last 24 Hours (Table) 07/25/17 23:56 Urine Culture - Final Urine,Clean Catch Assessment and Plan Assessment: As above. Patient doing well today. Nausea has resolved. She is anxious to go home. We'll provide a prescription for Tylenol 3 on discharge.
[2017-07-27 14:42] VITALS: BP 148/82; PULSE 76; TEMP 97.9
--- NOTE | 2017-07-27 17:27 | P.DS ---
Providers Date of admission: 07/27/17 10:04 Expected date of discharge: 07/27/17 Attending physician: Qamar Herrera Primary care physician: Deondre Delacruz [facility] Hospital Course: Patient admitted with acute cholecystitis. Found to have calculus cholecystitis intraoperatively. This morning was feeling nauseated but doing well now. Will discharge today. Please refer to progress note from today's evaluation. Follow-up 1-2 weeks. Patient Condition at Discharge: Good Plan - Discharge Summary Discharge Rx Participant: Yes New Discharge Prescriptions: No Action Glucosamine/Chondr Gomez A Sod [Osteo Bi-Flex Caplet] 2 tab PO DAILY Cholecalciferol [Vitamin D3] 1,000 unit PO DAILY Flaxseed Oil [Vilonia-3 Flaxseed Oil] 1,000 mg PO DAILY Fish Oil(Unknown Dose) 1 cap PO DAILY Calcium Carbonate [Calcium] 600 mg PO DAILY Leflunomide [Arava] 20 mg PO DAILY@1700 Adalimumab [Humira Pen] 40 mg SQ Q14D Etanercept [Enbrel Sureclick] 50 mg SQ DIRECTED Cyanocobalamin (Vitamin B-12) [Vitamin B-12] 1,000 mcg PO DAILY Discharge Medication List Adalimumab [Humira Pen] 40 mg SQ Q14D 07/26/17 [History] Calcium Carbonate [Calcium] 600 mg PO DAILY 07/26/17 [History] Cholecalciferol [Vitamin D3] 1,000 unit PO DAILY 07/26/17 [History] Cyanocobalamin (Vitamin B-12) [Vitamin B-12] 1,000 mcg PO DAILY 07/26/17 [ History] Etanercept [Enbrel Sureclick] 50 mg SQ DIRECTED 07/26/17 [History] Fish Oil(Unknown Dose) 1 cap PO DAILY 07/26/17 [History] Flaxseed Oil [Vilonia-3 Flaxseed Oil] 1,000 mg PO DAILY 07/26/17 [History] Glucosamine/Chondr Gomez A Sod [Osteo Bi-Flex Caplet] 2 tab PO DAILY 07/26/17 [ History] Leflunomide [Arava] 20 mg PO DAILY@1700 07/26/17 [History] Follow up Appointment(s)/Referral(s): Qamar Herrera MD [Medical Doctor] - 1 Week Deondre Delacruz MD [Primary Care Provider] - 1-2 days Activity/Diet/Wound Care/Special Instructions: No tub bath for six weeks. Shower daily. No lifting over 10 pounds for the next 6 weeks. Not remove the surgical plastic dressings from surgical site until seen in follow-up office visit May use ice packs to surgical site. No driving while taking narcotic for pain.
[2017-07-27] MEDS: ENOXAPARIN 40 MG/0.4 ML SYRINGE SQ SCH (18:11)
== END 2017-07-27 18:47 | disposition home or self-care (01) | DRG 357 ==
LOC: EC 21:06 → 5MS5E 07-26 00:20 → OBSVTOIN 07-27 10:04 → 5MS5E 07-27 10:07
PROVIDERS: ADMIT Surgery; ATTEND Surgery
PROC: 0FT44ZZ Resection of Gallbladder, Percutaneous Endoscopic Approach (ICD-10-PCS; principal; 2017-07-26 17:40)
DX: R11.0 Nausea (principal); K80.12 Calculus of gallbladder with acute and chronic cholecystitis without obstruction; M06.9 Rheumatoid arthritis, unspecified; Z79.899 Other long term (current) drug therapy; Z80.42 Family history of malignant neoplasm of prostate
CPT/HCPCS: 36415; 76705; 78226; 80053; 81003; 82150; 82550; 82553; 83605; 83690; 84484; 85025; 87086; 88304; 96374; 96375; 99285

== ENCOUNTER → 2022-06-26 | Outpatient (CLI) | payer OTHER ==
--- NOTE | 2022-06-27 12:32 | PE ---
EXAMINATION TYPE: PET CT fusion skull to thigh DATE OF EXAM: 06/26/2022 CLINICAL INDICATION:Female, 62 years old with history of R91.1; TECHNIQUE: Following the intravenous administration of 12 mCi of F-18 FDG, whole body images are pe rformed from the skull base to the midthigh. Images are reviewed on the computer in the coronal, axi al, and sagittal planes. Reconstructed rotating images are created on independent workstation and re viewed on the computer. A non-contrast CT is performed in conjunction with the PET scan. Glucose le martell 97 mg/dL COMPARISON: CT None, PET/CT None, FINDINGS: Mediastinal SUV mean is 1.4. Hepatic parenchyma SUV mean is 2.3. SKULL BASE AND NECK: No suspicious radiotracer activity. CHEST, MEDIASTINUM, AND HILAR REGION: * Right lower lobe pulmonary nodule measuring 13 x 10 mm and max SUV 1.2. * Left lower lobe peripheral nodule with calcification measuring 16 x 11 and max SUV 1.0. ABDOMEN AND PELVIS: No suspicious radiotracer activity. OSSEOUS STRUCTURES: No suspicious radiotracer activity. OTHER CT: The gallbladder surgically absent. Scattered colonic diverticula. Appendix is normal. IMPRESSION: Bilateral lower lobe pulmonary nodules with FDG activity below background levels. Finding in the abse nce of risk factors and with the left lower lobe nodule demonstrating calcification are favored to re present granulomatous disease. Consider short-term follow-up to ensure stability in 3-6 months. Jayden risons with priors at outside institution may be of benefit.
== END | disposition home or self-care (01) ==
LOC: RADPETMAIN 15:55
PROVIDERS: ATTEND Internal Medicine Critical Care Medicine
DX: R91.8 Other nonspecific abnormal finding of lung field (principal)
CPT/HCPCS: 78815; A9552

== ENCOUNTER 2022-10-20 08:18 | Day surgery (SDC) | payer OTHER ==
[2022-10-16 09:10] VITALS: BMI 24.5
[~2022-10-20 08:18] MED LIST: LACTATED RINGERS 1,000 ML IV SCH; LIDOCAINE 1% (10MG/ML) FOR IV START INTRADERMA PRN
[2022-10-20 09:24] VITALS: TEMP 97.5
[2022-10-20 09:25] LABS: Glucose,Whole Blood 99 mg/dL (70-110)
[2022-10-20] MEDS ORDERED: PROPOFOL 10 MG/ML 20 ML VIAL IV ONE (09:29)
--- NOTE | 2022-10-20 09:45 | P.PCN ---
Date of Procedure: 10/20/22 Procedure(s) Performed: BRIEF HISTORY: Patient is a 62-year-old pleasant white white female scheduled for an elective colonoscopy as a part of screening for colon cancer and strong family history of colon cancer. Her brother was diagnosed with colon cancer at age 48, sister with rectal cancer at age 50 and a nephew at age 28. PROCEDURE PERFORMED: Colonoscopy. PREOPERATIVE DIAGNOSIS:Screening for colon cancer/strong family history of colon cancer]. IV sedation per Anesthesia. PROCEDURE: After informed consent was obtained, the patient, was brought into the endoscopy unit. IV sedation was administered by Anesthesia under continuous monitoring. Digital rectal examination was normal. Initially the Olympus CF-160 flexible video colonoscope was then inserted in the rectum, gradually advanced into the cecum without any difficulty. Careful examination was performed as the scope was gradually being withdrawn. Ileocecal valve and the appendiceal orifice were visualized and appeared normal. Prep was excellent. Mucosa of the cecum, ascending colon, transverse colon, descending colon, sigmoid colon, and rectum appeared normal. Retroflexion was performed in the rectum and no lesions were seen. The patient tolerated the procedure well. IMPRESSION: Normal-appearing colon from rectum to cecum with no evidence of colorectal neoplasia. RECOMMENDATIONS: Findings of this examination were discussed with the patientas well as a family. She was advised to have a repeat screening colonoscopy in 3 years because of the strong family history of colon cancer.
[2022-10-20 10:16] VITALS: BP 148/86; PULSE 77; RESP 18
== END 2022-10-20 10:59 | disposition home or self-care (01) ==
LOC: ORWHC2ENDO 08:18
PROVIDERS: ATTEND Internal Medicine Gastroenterology
DX: Z12.11 Encounter for screening for malignant neoplasm of colon (principal); E78.5 Hyperlipidemia, unspecified; Z79.899 Other long term (current) drug therapy; Z80.0 Family history of malignant neoplasm of digestive organs; Z79.890 Hormone replacement therapy
CPT/HCPCS: 45378; J2704